=== PATIENT | female | born 1985 | race Caucasian/White ===

== ENCOUNTER 2020-01-04 21:45 | Emergency (ER) | payer MEDICAID ==
[~2020-01-04] VITALS: Ht 154.9 cm; Wt 54.5 kg
[2020-01-04] MEDS ORDERED: normal saline 1000ML IV soln IVB ONE (22:05)
[2020-01-04] MEDS ORDERED: LIDOcaine 1% W/epiNEPHrine 1:200,000 10ml vial IJ ONE (22:10)
[2020-01-04] MEDS ORDERED: piperacillin/tazo 3.375gm/50ml 50 ML IV ONE (22:10)
[2020-01-04] MEDS ORDERED: vancomycin/NS 1 GM ADD-VANTAGE 250 ML IV ONE (22:10)
--- NOTE | 2020-01-04 23:08 | NUR ---
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 SHER CASAREZ CURRENTLY ATTEMPTING. DR PARKINSON AWARE OF MED AND IVF WAIT.
--- NOTE | 2020-01-04 23:32 | NUR ---
Nafisa ibarra in [facility] - 01/05/20 at 0023 by LUPE HERMELINDO OBTAINED WOUND CULTURE INCORRECTLY; AWARE AND LAB AWARE TO CANCEL PRIOR SAMPLE SENT.
[2020-01-04] MEDS ORDERED: CEPH500C5 PO (23:44)
[2020-01-04] MEDS ORDERED: SULF1TAB49 PO (23:44)
[2020-01-04] MEDS ORDERED: HYDROcodone/acetaminophen 5mg/325mg tablet PO ONE (23:45)
[2020-01-04] MEDS ORDERED: sulfamethoxazole/trimethoprim DS (800/160mg) tablet PO ONE (23:45)
[2020-01-04] MEDS ORDERED: cephalexin 250mg capsule PO ONE (23:45)
--- NOTE | 2020-01-04 23:45 | NUR ---
UNABLE TO GET LINE PLACEMENT; ED MD AWARE
[2020-01-05] MEDS ORDERED: ibuprofen tablet 400 MG TABLET PO ONE (00:05)
--- NOTE | 2020-01-05 00:05 | NUR ---
KEEPING ORIGINAL BLUE TOP CULTURE SWAB; PLEASE DISREGARD NOTE ABOVE. PT WILL BE MEDICATED WITH ABX AND PAIN MEDS THEN D/ C AND ORDERED BY MD ED TO RETURN IN 24-36 HRS; PT VERBALIZES UNDERSTANDING.
[2020-01-05 00:23] VITALS: BP 131/75
== END 2020-01-05 00:29 | disposition home or self-care (01) ==
LOC: ER 21:45
DX: L02.612 Cutaneous abscess of left foot (principal); F11.10 Opioid abuse, uncomplicated; F17.200 Nicotine dependence, unspecified, uncomplicated
CPT/HCPCS: 10060; 36415; 71045; 73630; 87040; 87070; 99284